=== PATIENT | female | born 1940 | race Caucasian/White ===

== ENCOUNTER 2021-10-17 11:58 | Inpatient (IN) | payer MEDICARE, OTHER ==
[~2021-10-17] VITALS: Ht 165.1 cm; Wt 85.7 kg
[2021-10-17 16:48] LABS: HEMOGLOBIN 13.1 gm/dl (12.3-15.3); RED BLOOD COUNT 4.41 M/UL (4.00-5.10); WHITE BLOOD COUNT 8.7 K/UL (4.5-11.0)
[2021-10-17 19:15] LABS: HEMOGLOBIN 13.1 gm/dl (12.3-15.3); RED BLOOD COUNT 4.48 M/UL (4.00-5.10); WHITE BLOOD COUNT 8.2 K/UL (4.5-11.0)
[2021-10-18 01:24] LABS: HEMOGLOBIN 12.5 gm/dl (12.3-15.3); RED BLOOD COUNT 4.27 M/UL (4.00-5.10); WHITE BLOOD COUNT 7.3 K/UL (4.5-11.0)
--- NOTE | 2021-10-18 09:28 | NUR ---
MD called and made aware of patients abnormal rhythm, stated to have had several beats of NSVT and became normal sinus with occasional PVCs. MD stated she would have cardio consulted for the patient.
[2021-10-18] MEDS ORDERED: AMLODIPINE BESYL5 MG PO (10:03)
[2021-10-18] MEDS ORDERED: LISINOPRIL40 MG PO (10:04)
[2021-10-18] MEDS ORDERED: FAMOTIDINE40 MG PO (10:04)
[2021-10-18] MEDS ORDERED: NAPROXEN500 MG PO (10:04)
[2021-10-18] MEDS ORDERED: TRIAMCINOLONE A80 GM TP (10:07)
[2021-10-18] MEDS ORDERED: VITAMIN D250 MCG PO (10:08)
[2021-10-18] MEDS ORDERED: HUMIRA40 MG/0.8 SQ (10:08)
[2021-10-19 04:28] LABS: HEMOGLOBIN 13.1 gm/dl (12.3-15.3); RED BLOOD COUNT 4.45 M/UL (4.00-5.10); WHITE BLOOD COUNT 8.6 K/UL (4.5-11.0)
[2021-10-19] MEDS ORDERED: ZOFRAN 4 MG TAB4 MG PO (08:53)
[2021-10-19] MEDS ORDERED: HYDROCODON-ACE1 EAC6 PO (08:53)
[2021-10-19] MEDS ORDERED: ELIQUIS2.5 MG PO (08:53)
--- NOTE | 2021-10-20 00:45 | NUR ---
INCENTIVE SPIROMETER GIVEN TO PATIENT, PATIENT WAS EDUCATED ON THE PROPER USE AND IMPORTANCE OF THE USE. STOCKINGS APPLIED.
[2021-10-20 03:17] LABS: HEMOGLOBIN 13.8 gm/dl (12.3-15.3); RED BLOOD COUNT 4.62 M/UL (4.00-5.10); WHITE BLOOD COUNT 12.7 K/UL (4.5-11.0)
[2021-10-20 03:31] LABS: BUN/CREATININE RATIO 24 (0-10)
[2021-10-21 03:04] LABS: HEMOGLOBIN 11.5 gm/dl (12.3-15.3); RED BLOOD COUNT 3.9 M/UL (4.00-5.10); WHITE BLOOD COUNT 10.3 K/UL (4.5-11.0)
[2021-10-21 03:38] LABS: BUN/CREATININE RATIO 25 (0-10)
[2021-10-22 02:20] LABS: HEMOGLOBIN 10.9 gm/dl (12.3-15.3); RED BLOOD COUNT 3.81 M/UL (4.00-5.10); WHITE BLOOD COUNT 11.8 K/UL (4.5-11.0)
[2021-10-22 02:41] LABS: BUN/CREATININE RATIO 26 (0-10)
[2021-10-22] MEDS ORDERED: METOPROLOL SUCC25 MG PO (09:31)
[2021-10-22] MEDS ORDERED: OMNICEF 300 MG300 MG PO (09:35)
--- NOTE | 2021-10-22 11:22 | NUR ---
CALLED REPORT TO [facility] AND SPOKE TO DIMAS.
== END 2021-10-22 13:12 | disposition home or self-care (01) | DRG 522 ==
LOC: ER1 11:58 → M/S 17:50 → CDU 17:50 → M/S 18:34
PROVIDERS: Internal Medicine; Orthopaedic Surgery; Physician Assistant Medical; ADMIT Internal Medicine
PROC: B24BZZZ Ultrasonography of Heart with Aorta (ICD-10-PCS; 2021-10-18)
PROC: 0SRS0JZ Replacement of Left Hip Joint, Femoral Surface with Synthetic Substitute, Open Approach (ICD-10-PCS; principal; 2021-10-19 08:30)
DX: S72.002A Fracture of unspecified part of neck of left femur, initial encounter for closed fracture (principal); N30.00 Acute cystitis without hematuria; D62 Acute posthemorrhagic anemia; Z20.822 Contact with and (suspected) exposure to COVID-19; I10 Essential (primary) hypertension; M06.9 Rheumatoid arthritis, unspecified; I07.1 Rheumatic tricuspid insufficiency; I49.3 Ventricular premature depolarization; W01.0XXA Fall on same level from slipping, tripping and stumbling without subsequent striking against object, initial encounter; B96.20 Unspecified Escherichia coli [E. coli] as the cause of diseases classified elsewhere; Z85.3 Personal history of malignant neoplasm of breast; Z90.10 Acquired absence of unspecified breast and nipple; Z82.49 Family history of ischemic heart disease and other diseases of the circulatory system; Z87.891 Personal history of nicotine dependence
CPT/HCPCS: ECHO; 36415; 71045; 72170; 73501; 73502; 73552; 73564; 73590; 73630; 76000; 80048; 80053; 81001; 82550; 82553; 83735; 84439; 84443; 84484; 85025; 85027; 86850; 86900; 86901; 87077; 87086; 87186; 93005; 93306; 97110-GP-CQ; 97116-GP-CQ; 97162; 97166; 97535; 99284; C1776; J0690; J0696; J1100; J2001; J2250; J2405; J2704; J2795; J3010; J3370; J7030; J7050; J7120